=== PATIENT | male | born 1950 | race Caucasian/White ===

== ENCOUNTER 2017-02-22 03:32 | Inpatient (IN) | payer OTHER, MEDICAID ==
[~2017-02-22] VITALS: Ht 170.2 cm; Wt 106.2 kg
[~2017-02-22 03:32] MED LIST: AMITRIPTYLINE100 M2 PO; AMITRIPTYLINE100 MG PO; ANTIVERT12.5 MG PO; APAP/HYDROCODON1 T13 PO; APIDRA100 U/M1 SC; CIMETIDINE300 MG PO; CLARITIN 24HR10 MG PO; FLOVENT DI250 MCG/A1 PO; FLUTICASONE PROPIONATE IH; FUROSEMIDE40 MG PO; GLIPIZIDE5 MG PO; GLU5XL PO; K-TAB10 MEQ PO; LANTUS SOLOS100 U/M1 SC; LANTUS SOLOS100 U/M1 SQ; LASIX40 MG PO; LISINOPRIL30 MG PO; LOP600 PO; LOPRESSOR50 MG PO; LORATADINE10 MG PO; METFORMIN HCL1000 MG PO; NAPROSYN500 MG PO; NAPROXEN EC500 MG PO; NITROSTAT0.4 MG SL; NOR10T PO; NORCO1 TA2 PO; POTASSIUM CHLO10 MEQ PO; PRILOSEC20 MG PO; PRINIVIL20 MG PO; SIMVASTATIN10 M1 PO; TIZANIDINE HCL4 MG PO; ULT50 PO; ZOCOR10 MG PO; [UNRECOGNIZED DRUG - OTHER] IH
--- NOTE | 2017-02-22 04:20 | NUR ---
PT PRESENTS TO ED WITH C/O RECTAL BLEEDING THAT BEGAN YESTERDAY MORNING. PT REPORTS X6 EPISODES. 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 PT DENIES ANY PAIN AT THIS TIME. RESP E/U. NO ACUTE DISTRESS NOTED. BED IN LOW POSITION. CALL LIGHT WITHIN REACH.
[2017-02-22 05:08] LABS: CALCIUM 8.2 mg/dL (8.5-10.1); CARBON DIOXIDE 24.8 mmol/L (21-32); CREATININE SERUM 1.3 mg/dL (0.7-1.3)
[2017-02-22 05:09] LABS: BASOPHIL % 0.1 % (0-2); PLATELET COUNT 225 x10^3mcL (130-400); RED CELL DISTRIBUTION WIDTH 13.2 % (11.5-14.5)
[2017-02-22 05:15] LABS: ALBUMIN 3.7 g/dL (3.4-5.0); BILIRUBIN TOTAL 0.2 mg/dL (0.20-1.00); TOTAL PROTEIN, SERUM 7.4 g/dL (6.4-8.2)
--- NOTE | 2017-02-22 05:50 | NUR ---
PT AMBULATED TO BATHROOM AND BACK TO BED WITH USE OF WALKER. NO ACUTE DISTRESS NOTED. PT STATES HE NOTICED BLOOD IN URINE. MADE AWARE. PT GIVEN SPECIMEN CUP TO PROVIDE URINE SAMPLE.
[2017-02-22] MEDS ORDERED: LASIX40 MG PO (06:19)
[2017-02-22] MEDS ORDERED: GEMFIBROZIL600 MG PO (06:19)
[2017-02-22] MEDS ORDERED: FLOVENT HF0.11 MG/A1 INH (06:19)
[2017-02-22] MEDS ORDERED: NOR10T PO (06:20)
[2017-02-22] MEDS ORDERED: MECLIZINE HYD12.5 MG PO (06:20)
[2017-02-22] MEDS ORDERED: COU5 PO (06:21)
[2017-02-22] MEDS ORDERED: SIMVASTATIN10 M1 PO (06:21)
[2017-02-22] MEDS ORDERED: FINASTERIDE5 M1 PO (06:21)
[2017-02-22] MEDS ORDERED: ATORVASTATIN CA40 M1 PO (06:21)
[2017-02-22] MEDS ORDERED: ZANAFLEX CAPSULE4 MG PO (06:21)
[2017-02-22] MEDS ORDERED: RANITIDINE HCL150 M1 PO (06:22)
[2017-02-22] MEDS ORDERED: LOPRESSOR50 M1 PO (06:22)
[2017-02-22] MEDS ORDERED: TRAMADOL HCL50 MG PO (06:23)
[2017-02-22] MEDS ORDERED: POTASSIUM CHLO10 MEQ PO (06:23)
[2017-02-22] MEDS ORDERED: METFORMIN HCL1000 MG PO (06:23)
[2017-02-22] MEDS ORDERED: DOK COLACE100 MG PO (06:24)
[2017-02-22] MEDS ORDERED: GLUCOTROL5 MG PO (06:24)
[2017-02-22] MEDS ORDERED: DICLOFENAC SODI75 MG PO (06:24)
[2017-02-22] MEDS ORDERED: NEXIUM40 MG PO (06:25)
[2017-02-22] MEDS ORDERED: AMITRIPTYLINE100 M2 PO (06:25)
--- NOTE | 2017-02-22 06:35 | NUR ---
REPORT GIVEN TO YONY RAMOS TO ASSUME CARE OF PT.
--- NOTE | 2017-02-22 06:45 | NUR ---
RESIDENT NOTIFIED OF PT PAIN. PER RESIDENT, PT WILL BE MEDICATED ONCE UPSTAIRS.
--- NOTE | 2017-02-22 07:08 | NUR ---
RECEIVED FROM ER TRANSPORTED VIA [facility], FACILITATED TO BED, HOOKED TO TELE MONITOR #6, V/S TAKEN, PT AAO X4 VERBAL AMBULANT, IVF NS STARTED INDICATED IV ACCESS LAC PATENT NON INFIL, WILL ENDORSE TO INCOMING SHIFT FOR ADMISSION.
[2017-02-22 07:27] LABS: PHOSPHOROUS 3.2 mg/dL (2.5-4.9)
[2017-02-22 07:36] LABS: T3 TOTAL 0.69 ng/mL
--- NOTE | 2017-02-22 07:55 | NUR ---
PT LAYING IN BED. A/OX4. REPORT OF PAIN IN ABDOMEN, ACHING AND SHARP CRAMPS. GIVEN PAIN MED. NO SIGN OF ACUTE DISTRESS. IV FLUIDS FLOWING. BOWEL SOFT AND ROUND. BOWEL SOUNDS ACTIVE. BED IN LOW POSITION. CALL LIGHT WITHIN REACH. WILL CONTINUE TO MONITOR.
[2017-02-22 08:02] LABS: FREE T4 0.84 ng/dL (0.76-1.46); FREE THYROXINE INDEX 1.9 ug/dL (1.4-4.5); T4(THYROXINE) 5.2 ug/dL (4.7-13.3)
[2017-02-22 09:58] VITALS: BP 177/77
--- NOTE | 2017-02-22 10:53 | NUR ---
PT TAKEN TO CT. NO SIGN OF ACUTE DISTRESS.
--- NOTE | 2017-02-22 12:30 | NUR ---
PT LAYING IN BED. NO REPORT OF PAIN. AT BEDSIDE. NO SIGN OF ACUTE DISTRESS. IV FLUIDS FLOWING. BED IN LOW POSITION. CALL LIGHT WITHIN REACH. WILL CONTINUE TO MONITOR.
[2017-02-22 12:42] VITALS: BP 164/92
[2017-02-22 13:54] VITALS: BP 133/59
[2017-02-22 16:56] VITALS: BP 1026/72; BP 126/72
--- NOTE | 2017-02-22 18:59 | NUR ---
PT SITTING AT SIDE OF BED. AT BEDSIDE. NO REPORT OF PAIN. NO SIGN OF ACUTE DISTRESS. BOWEL PREP GIVEN, CLEAR PATHWAY TO RESTROOM. NO SIGN OF ACUTE DISTRESS. NO REPORT OF ABDOMINAL PAIN. BED IN LOW POSITION. CALL LIGHT WITHIN REACH. WILL ENDORSE TO ONCOMING SHIFT.
--- NOTE | 2017-02-22 19:24 | NUR ---
RECEIVED PT FROM PREVIOUS SHIFT NURSE. PT AOX4. TELE #6, ST, HR 101. DENIES CP/PRESSURE. PULSES PRESENT, NO EDEMA NOTED. LUNG SOUNDS CLEAR, ON RA. DENIES SOB/ DIFFICULTY BREATHING. BOWEL SOUNDS ACTIVE, REPORTS BLOODY STOOL. VOIDS FREELY. GENERALIZED WEAKNESS. AMBULATORY WITH WALKER, WALKER AT BEDSIDE. SKIN INTACT. IV IN LAC, INTACT AND PATENT. BED IN LOWEST POSITION. CALL LIGHT WITHIN REACH. WILL CONTINUE TO MONITOR.
[2017-02-22 21:15] VITALS: BP 132/70
[2017-02-23] VITALS (7 sets, daily range): BP systolic 128–170; BP diastolic 65–96
--- NOTE | 2017-02-23 | NUR ---
SECOND ROUND OF BOWEL PREP GIVEN. PT TOLERATING WELL.
--- NOTE | 2017-02-23 01:26 | NUR ---
PT RESTING IN BED. RR EVEN AND UNLABORED. NO ACUTE DISTRESS NOTED. CALL LIGHT WITHIN REACH. BED IN LOWEST POSITION. WILL CONTINUE TO MONITOR.
[2017-02-23 06:25] LABS: CARBON DIOXIDE 28.1 mmol/L (21-32); CHLORIDE SERUM 111 mmol/L (98-107); CREATININE SERUM 0.9 mg/dL (0.7-1.3); GFR1 > 60 mL/min; GLUCOSE SERUM 195 mg/dL (74-106); POTASSIUM SERUM 5.1 mmol/L (3.5-5.1); SODIUM SERUM 147 mmol/L (136-145)
[2017-02-23 06:43] LABS: BASOPHIL % 0.4 % (0-2); PLATELET COUNT 199 x10^3mcL (130-400); RED CELL DISTRIBUTION WIDTH 13.6 % (11.5-14.5)
--- NOTE | 2017-02-23 07:19 | NUR ---
RECEIVED PT IN NO ACUTE DISTRESS. RESTING COMFORTABLY IN BED. NO PAIN NOTED. IVF INFUSING. BED IN LOW POSITION, CALL LIGHT WITHIN REACH. WILL CONTINUE TO MONITOR.
--- NOTE | 2017-02-23 10:27 | NUR ---
PT WENT DOWN TO GI LAB IN NO ACUTE DISTRESS.
--- NOTE | 2017-02-23 11:43 | NUR ---
PT BACK FROM GI LAB. NO ACUTE DISTRESS. DENIES ABD PAIN AT THIS TIME. BED IN LOW POSITION, CALL LIGHT WITHIN REACH. WILL CONTINUE TO MONITOR.
--- NOTE | 2017-02-23 12:38 | NUR ---
PT SITTING UP IN CHAIR. NO ACUTE DISTRESS. DENIES PAIN. CALL LIGHT WITHIN REACH. WILL CONTINUE TO MONITOR.
--- NOTE | 2017-02-23 18:17 | NUR ---
PT RESTING IN BED. NO ACUTE DISTRESS. NO C/O ABD PAIN. IV TO LAC. FAMILY AT BEDSIDE. BED IN LOW POSITION, CALL LIGHT WITHIN REACH. WILL ENDORSE TO INCOMING SHIFT.
--- NOTE | 2017-02-23 19:31 | NUR ---
RECEIVED PT FROM PREVIOUS SHIFT NURSE. PT AOX4. TELE #6, NSR WITH ELEVATED T WAVE, HR 96. DENIES CP/PRESSURE. PULSES PRESENT, NO EDEMA NOTED. LUNG SOUNDS CLEAR, ON RA. DENIES SOB/DIFFICULTY BREATHING. BOWEL SOUNDS ACTIVE. VOIDS FREELY. GENERALIZED WEAKNESS. AMBULATORY WITH WALKER. SKIN INTACT. IV IN LAC, INTACT AND PATENT. BED IN LOWEST POSITION. CALL LIGHT WITHIN REACH. WILL CONTINUE TO MONITOR.
[2017-02-23 22:24] LABS: microscopic required? YES; urine erythrocyte TRACE (NEGATIVE)
[2017-02-23 22:35] LABS: AMPHETAMINE QUAL UR NONE DETECTED (NEG <=1000)
--- NOTE | 2017-02-24 01:31 | NUR ---
PT RESTING IN BED. RR EVEN AND UNLABORED. NO ACUTE DISTRESS NOTED. CALL LIGHT WITHIN REACH. BED IN LOWEST POSITION. WILL CONTINUE TO MONITOR.
[2017-02-24 04:48] VITALS: BP 156/84
[2017-02-24] MEDS ORDERED: METP PO (05:41)
[2017-02-24 07:05] LABS: BASOPHIL % 0.2 % (0-2); PLATELET COUNT 185 x10^3mcL (130-400); RED CELL DISTRIBUTION WIDTH 12.8 % (11.5-14.5)
--- NOTE | 2017-02-24 07:06 | NUR ---
PT LAYING IN BED, SLEEPING. NO SIGN OF ACUTE DISTRESS. BED IN LOW POSITION. CALL LIGHT WITHIN REACH. WILL CONTINUE TO MONITOR.
[2017-02-24 07:15] LABS: CALCIUM 8.9 mg/dL (8.5-10.1); CARBON DIOXIDE 26.8 mmol/L (21-32); CHLORIDE SERUM 109 mmol/L (98-107); CREATININE SERUM 0.9 mg/dL (0.7-1.3); GFR1 > 60 mL/min; GLUCOSE SERUM 184 mg/dL (74-106); POTASSIUM SERUM 4.1 mmol/L (3.5-5.1); SODIUM SERUM 143 mmol/L (136-145)
[2017-02-24 09:16] VITALS: BP 179/75
--- NOTE | 2017-02-24 12:05 | NUR ---
PT LAYING IN BED. A/OX4. GENERAL BODY ACHE PAIN REPORTED 2/10, PT REPORTS TOLERABLE. NO SIGN OF ACUTE DISTRESS. IV FLUIDS FLOWING. BED IN LOW POSITION. CALL LIGHT WITHIN REACH. WILL CONTINUE TO MONITOR.
[2017-02-24 12:28] VITALS: BP 139/73
[2017-02-24 13:01] VITALS: BP 139/73
--- NOTE | 2017-02-24 13:28 | NUR ---
PT D/C TO HOME, AMBULATORY. ESCORTED BY RICHARD ACOSTA. AWAKE, ALERT, AND ORIENTED. NO REPORT OF PAIN. NO SIGN OF ACUTE DISTRESS. PATIENT EDUCATION PROVIDED, PT VERBALIZED UNDERSTANDING. DIRECTED TO FOLLOW UP WITH PCP WITHIN 3-5 DAYS, PT VERBALIZED UNDERSTANDING. IV REMOVED, CATHETER IN TACT. TELE REMOVED. NO ABDOMINAL PAIN REPORTED. BELONGINGS WITH PATIENT.
== END 2017-02-24 13:28 | disposition home or self-care (01) | DRG 393 ==
LOC: ED 03:32 → DU 05:44
PROVIDERS: Emergency Medicine Emergency Medical Services; Internal Medicine Gastroenterology; Student in an Organized Health Care Education/Training Program; ADMIT Family Medicine Sports Medicine
PROC: 0DJD8ZZ Inspection of Lower Intestinal Tract, Via Natural or Artificial Opening Endoscopic (ICD-10-PCS; principal; 2017-02-23 10:00)
DX: K64.9 Unspecified hemorrhoids (principal); N17.0 Acute kidney failure with tubular necrosis; K57.91 Diverticulosis of intestine, part unspecified, without perforation or abscess with bleeding; D62 Acute posthemorrhagic anemia; E87.0 Hyperosmolality and hypernatremia; E11.65 Type 2 diabetes mellitus with hyperglycemia; Z79.4 Long term (current) use of insulin; Z79.01 Long term (current) use of anticoagulants; Z79.84 Long term (current) use of oral hypoglycemic drugs; I10 Essential (primary) hypertension; F32.9 Major depressive disorder, single episode, unspecified; E78.00 Pure hypercholesterolemia, unspecified; I25.10 Atherosclerotic heart disease of native coronary artery without angina pectoris; E11.51 Type 2 diabetes mellitus with diabetic peripheral angiopathy without gangrene; E83.51 Hypocalcemia; K21.9 Gastro-esophageal reflux disease without esophagitis; E66.9 Obesity, unspecified; Z68.36 Body mass index [BMI] 36.0-36.9, adult
CPT/HCPCS: 45378; 82962; 84439; J1200; J1610; J1815; J2250; J2310; J3010; J3430; J3490; J7030; J7042; Q0092; Q9967